=== PATIENT | female | born 1940 | race Hispanic/Latino ===

== ENCOUNTER 2020-04-30 08:38 | Outpatient (CLI) | payer MEDICARE ==
[2020-04-30] MEDS ORDERED: REGADENOSON 0.4 MG/5 ML INJ IV ONE ×2 (10:17→10:20)
[2020-04-30 11:37] VITALS: BP 147/74
== END 2020-04-30 08:39 | disposition home or self-care (01) ==
LOC: CARD 08:38
DX: R06.02 Shortness of breath (principal)
CPT/HCPCS: 36415; 78452; 83880; 93017; A9502; J2785

== ENCOUNTER 2021-03-25 10:42 | Outpatient (CLI) | payer MEDICARE ==
--- NOTE | 2021-03-25 11:13 | Mammography Report ---
DIGITAL SCREENING MAMMOGRAM WITH CAD, 03/25/2021 CLINICAL INFORMATION / INDICATION: Routine screening mammography. SCREENING MAMMO LEFT TECHNIQUE: Digital left 2D mammography was obtained in the craniocaudal and mediolateral oblique pro jections. This examination was interpreted with the benefit of Computer-Aided Detection analysis. COMPARISON: 01/29/2013 through 03/20/2020. FINDINGS: Breast Density: The breasts are heterogeneously dense, which may obscure small masses. No dominant mass or suspicious calcifications in the left breast. Left breast scarring and a biopsy clip are again noted. No new abnormality is seen. IMPRESSION: No mammographic evidence of malignancy. Follow up recommendation: Routine yearly BI-RADS Category 2: Benign. A "normal" or negative report should not discourage follow up or biopsy of a clinically significant f inding. A written summary of these findings will be mailed to the patient. The patient will be entered into a mammography reporting system which will generate a reminder letter for the patient's next appointmen t at the appropriate interval. The [employer] recommends yearly mammograms starting at age 40 and continuing as l tamela as a woman is in good health. Breast MRI is recommended for women with an approximate 20-25% or greater lifetime risk of breast cancer, including women with a strong family history of breast or ova franck cancer or who have been treated for Hodgkin's disease. Signer Name: Conor Severino MD Signed: 03/25/2021 11:08 AM Workstation Name: [id number]
== END 2021-03-25 10:43 | disposition home or self-care (01) ==
LOC: SPVWC 10:42
PROVIDERS: ATTEND Surgery
DX: Z12.31 Encounter for screening mammogram for malignant neoplasm of breast (principal); N64.89 Other specified disorders of breast